=== PATIENT | male | born 1980 | race Caucasian/White ===

== ENCOUNTER 2022-02-26 10:55 | Emergency (ER) | payer OTHER, SELFPAY ==
[2022-02-26] VITALS (8 sets, daily range): BP systolic 100–138; BP diastolic 83–92; PULSE 87–106; RESP 15–20; TEMP 36.1–36.9; O2SAT 98–100
--- NOTE | ~2022-02-26 | CT_ITS ---
EXAMINATION: CT BRAIN W/O DATE: 02/26/2022 12:13 INDICATION: Seizures. TECHNIQUE: Computed tomography (CT) of the head was performed without intravenous contrast. The dose- length product was 908.00 mGy-cm. Automated exposure control and iterative reconstruction technique w ere employed. COMPARISON: No prior studies for comparison. FINDINGS: Normal brain parenchymal volume for age. Normal santoyo-white differentiation. No acute intrac ranial hemorrhage, infarction, mass or mass effect. No ventriculomegaly or midline shift. Midline sagittal images demonstrate a normal corpus callosum, c raniovertebral junction and sella turcica. Basilar cisterns are patent. There is mucosal thickening of the paranasal sinuses. Mastoids are pneumatized. No depressed skull fr actures. IMPRESSION: 1. No acute intracranial abnormality. Reviewed, dictated and finalized at location A. TRICAL ENGINEERING TECHNICIAN
--- NOTE | 2022-02-26 11:03 | ECG_ITS ---
Measurements Intervals [place] Rate: 91 P: 83 NH: 143 QRS: 78 QRSD: 86 T: 25 QT: 358 QTc: 442 Interpretive Statements SINUS RHYTHM BASELINE ARTIFACT NONSPECIFIC ST & T-WAVE ABNORMALITY BORDERLINE ECG NO PREVIOUS ECG AVAILABLE FOR COMPARISON Electronically Signed On 02-26-2022 13:57:47 MANAGER ANIMAL by Brian Florence M.D.
[2022-02-26] MEDS: LORazepam INJ (*CRX) 2 MG/ML VIAL 0.5 MG IV PUSH (11:13)
[2022-02-26] MEDS: SODIUM CHLORIDE 0.9% IV 1,000 ML 999 ML IV CONT (11:13)
[2022-02-26 11:18] LABS: Basophils Absolute Auto 0.02 K/mm3 (0.00-0.10); Basophils Percent Auto 0.4 % (0.0-1.0); Eosinophils Absolute Auto 0.33 K/mm3 (0.02-0.50); Eosinophils Percent Auto 5.9 % (1.0-6.0); Hematocrit 35.3 % (40.0-54.0); Hemoglobin 10.9 g/dL (14.0-18.0); Immature Granulocyte Absolute 0.02 K/mm3 (0.00-0.00); Immature Granulocyte Percent A 0.4 % (0.0-0.0); Lymphocytes Absolute Auto 1.82 K/mm3 (1.10-4.50); Lymphocytes Percent Auto 32.7 % (18.0-42.0); Mean Corpuscular HGB Conc 30.9 g/dL (32.0-36.0); Mean Corpuscular Hemoglobin 26.7 pg (27.0-31.0); Mean Corpuscular Volume 86.3 fL (78.0-102.0); Mean Platelet Volume 9.3 fl (8.7-11.0); Monocytes Absolute Auto 0.47 K/mm3 (0.10-0.90); Monocytes Percent Auto 8.4 % (2.0-11.0); Neutrophils Absolute Auto 2.9 K/mm3 (1.7-7.2); Neutrophils Percent Auto 52.2 % (50.0-70.0); Platelet Count Result 310 K/mm3 (150-420); Red Blood Count 4.09 M/mm3 (4.70-6.10); Red Cell Distribution Width 14.5 % (11.6-14.4); White Blood Count 5.6 K/mm3 (4.8-10.8)
[2022-02-26 11:36] LABS: Alanine Aminotransferase 8 U/L (16-63); Albumin Level 3.1 g/dL (3.4-5.0); Alkaline Phosphatase 84 U/L (46-116); Anion Gap 12 mmol/L (8-16); Aspartate Amino Transferase 13 U/L (15-37); Bilirubin,Total 0.2 mg/dL (0.00-1.00); Blood Urea Nitrogen 12 mg/dL (7-18); Carbon Dioxide 26 mmol/L (21-32); Chloride 102 mmol/L (98-108); Estimated Glomerular Filt Rate > 60; Glucose 128 mg/dL (70-99); Osmolality Calculated 291 mOsm/kg (285-295); Potassium 3.9 mmol/L (3.5-5.1); Sodium 140 mmol/L (136-145); Total Protein 8.7 g/dL (6.4-8.2)
[2022-02-26 12:02] LABS: Add Urine Microscopic? YES; Appearance Urine Clear (Clear); Bilirubin Urine Negative (Negative); Blood Urine 3+ (Negative); Color Urine Yellow (Yellow); Glucose Urine UA Negative (Negative); Ketones Urine Negative (Negative); Leukocyte Esterase Ur Negative LEU/UL (Negative); Nitrate Urine Negative (Negative); Protein Urine Trace (Negative)
[2022-02-26 12:07] LABS: Squamous Epithelial Cell Urine Rare /hpf (Few); WBC Urine None seen /hpf (0-3)
[2022-02-26 12:08] LABS: Bacteria Urine Trace /hpf; Other Sediment Urine Spermatazoa /hpf
[2022-02-26 12:13] LABS: Amphetamine Screen Urine Positive (Negative); Barbiturate Screen Urine Negative (Negative); Benzodiazepines Screen Urine Negative (Negative); Cannabinoid Screen Urine Positive (Negative); Cocaine Screen Urine Negative (Negative); Methadone Screen Urine Negative (Negative); Opiate Screen Urine Negative (Negative); Phencyclidine Screen Urine Negative (Negative)
--- NOTE | 2022-02-26 12:26 | ED.SEIZURE ---
HPI - Seizure General Chief Complaint: Seizure Stated Complaint: ambulance Source: patient and EMS Mode of arrival: ambulatory Limitations: no limitations History of Present Illness HPI Narrative: This is a 41-year-old gentleman with a history of seizures currently not on any medication apparently last seizure was over a year ago had a witnessed seizure at home lasted less than a minute with no tongue biting no bowel or bladder dysfunction currently no injuries no complaints has not had a seizure since he arrived via EMS. There was no chest pain no shortness of breath no altered mental status no fever chills no headaches no blurry vision. MD complaint: seizure Onset (ago): hour(s) Duration of episode: 1 -: minutes(s) Witnessed: Yes - by Bystander Trauma: No Seizure History: Yes Place: home Possible Precipitating Event: none Associated symptoms: denies other symptoms Related Data Allergies Allergy/AdvReac Type Severity Reaction Status Date / Time Penicillins Allergy Mild Rash Verified 02/26/22 11:38 Review of Systems Review of Systems: All systems reviewed & are unremarkable except as noted in HPI and below Exam Const: General: healthy appearing HENMT: Head: normal to inspection Ears: external ears normal Face/Nose/Sinus: Normal external nose present Mouth: Yes Normal oral and palatal mucosa present Teeth and gingiva: dentition normal Throat: posterior oropharynx normal Eyes: Conjunctivae: conjunctivae normal Pupils: Equal, round and reactive pupils present EOM: EOMs intact bilaterally Neck: Neck: normal visual inspection Chest: Chest palpation & inspection: normal inspection of the chest Resp: Effort & Inspection: normal respiratory effort Cardio: Rate: regular rate Rhythm: regular rhythm GI: GI Palp: Yes Soft to palpation : General: Yes bladder normal to palpation Back/Spine/Pelvis: Back: no CVA tenderness Skin: General skin exam: normal color Rashes: no rashes Wounds: no wounds Neuro: General: patient oriented x3, moves all extremities, no meningeal signs, no focal motor deficits and CN's II-XI intact bilaterally Cranial nerves: Yes Nystagmus not present Speech: normal speech Extrem: General: normal to inspection Psych: Appearance: grossly normal Course Course Emergency Course: patient had IV fluids administered along with a dose of IV Ativan, has not had any seizures since eyes been in the emergency department had a CT scan and blood work along with a urine drug screen reviewed. Vital Signs Vital signs: Vital Signs Temperature 36.1 C L 02/26/22 10:55 Pulse Rate 106 H 02/26/22 10:55 Respiratory Rate 18 02/26/22 10:55 Blood Pressure 130/92 H 02/26/22 10:55 Pulse Oximetry 100 02/26/22 10:55 Oxygen Delivery Room Air 02/26/22 10:55 Temperature 36.7 C 02/26/22 10:55 Pulse Rate 88 02/26/22 11:11 Respiratory Rate 20 02/26/22 10:55 Blood Pressure 132/91 H 02/26/22 10:55 Pulse Oximetry 98 02/26/22 10:55 Oxygen Delivery Room Air 02/26/22 10:55 MDM - Seizure Lab Data 02/26/22 11:13 02/26/22 11:13 Labs: Lab Results 02/26/22 02/26/22 02/26/22 Range/Units 11:13 11:13 11:50 WBC 5.6 (4.8-10.8) K/mm3 RBC 4.09 L (4.70-6.10) M/mm3 Hgb 10.9 L (14.0-18.0) g/dL Hct 35.3 L (40.0-54.0) % MCV 86.3 (78.0-102.0) fL MCH 26.7 L (27.0-31.0) pg MCHC 30.9 L (32.0-36.0) g/dL RDW 14.5 H (11.6-14.4) % Plt Count 310 (150-420) K/mm3 MPV 9.3 (8.7-11.0) fl Immature Gran % (Auto) 0.4 H (0.0-0.0) % Neut % (Auto) 52.2 (50.0-70.0) % Lymph % (Auto) 32.7 (18.0-42.0) % [place] % (Auto) 8.4 (2.0-11.0) % Eos % (Auto) 5.9 (1.0-6.0) % Baso % (Auto) 0.4 (0.0-1.0) % Lymph # (Auto) 1.82 (1.10-4.50) K/mm3 [place] # (Auto) 0.47 (0.10-0.90) K/mm3 Eos # (Auto) 0.33 (0.02-0.50) K/mm3 Baso # (Auto) 0.02 (0.00-0.10) K/mm3 Abs Immat Gran (auto) 0.02 H (0.00
--- NOTE | 2022-02-26 12:54 | PC.NURSE ---
pt assisted to mothers vehicle per wheelchair. alert and stable.
== END 2022-02-26 12:53 | disposition home or self-care (01) ==
PROVIDERS: Emergency Provider Emergency Medicine
DX: G40.409 Other generalized epilepsy and epileptic syndromes, not intractable, without status epilepticus (principal)
CPT/HCPCS: 36415; 70450; 80053; 80307; 81001; 85025; 93005; 96361; 96374; 99284; J2060; J7030

== ENCOUNTER 2022-08-25 21:42 | Emergency (ER) | payer OTHER, SELFPAY ==
[2022-08-25] VITALS (12 sets, daily range): BP systolic 104–155; BP diastolic 74–83; PULSE 89–105; RESP 20–26; TEMP 37.7–38; O2SAT 92–100
--- NOTE | ~2022-08-25 | XR_ITS ---
EXAMINATION: XR chest 1V portable DATE: 08/25/2022 21:59 INDICATION: Cough and tired. TECHNIQUE: frontal view of the chest was obtained. COMPARISON: Chest radiograph dated 05/15/2011 FINDINGS: Subtle opacities in the right lower lung zone. Left lung remains clear. No pleural effusion or pneumo thorax. The cardiomediastinal silhouette is normal. Visualized bones and soft tissues are unremarkabl e. IMPRESSION: 1. Subtle opacities in the right lower lung zone suspicious for pneumonia Reviewed, dictated and finalized at location A.
--- NOTE | 2022-08-25 22:09 | ED.GENADULT ---
HPI - General Adult General Chief complaint: Unspecified Stated complaint: Multiple Complaints Time Seen by Provider: 08/25/22 21:46 Source: patient Mode of arrival: ambulatory Limitations: no limitations History of Present Illness HPI narrative: patient here because of shortness of breath and generalized weakness has a cough that is nonproductive temperature of 100.4, with some no chest pain no abdominal pain does have some nausea vomiting with no dysuria no flank pain currently no diarrhea or constipation. Onset (ago): day(s) Related Data Allergies Allergy/AdvReac Type Severity Reaction Status Date / Time Penicillins Allergy Mild Rash Verified 08/25/22 21:45 Review of Systems Review of Systems: All systems reviewed & are unremarkable except as noted in HPI and below PMFSH Past Medical History Medical History Seizures Exam Const: General: cooperative HENMT: Head: normal to inspection Face/Nose/Sinus: Normal external nose present Face and sinus: normal facial exam Mouth: Yes Normal oral and palatal mucosa present Eyes: General: appearance normal, both eyes and all related structures Visual White: normal visual white by confrontation Neck: Neck: normal visual inspection, full ROM and no lymphadenopathy Chest: Chest palpation & inspection: normal inspection of the chest and normal palpation of entire chest wall Resp: Effort & Inspection: normal respiratory effort and able to speak in complete sentences Auscultation: wheezes and bronchial breath sounds Cardio: Jugular venous distension: no JVD Palpation: normal PMI Rate: regular rate Rhythm: regular rhythm Skin: General skin exam: normal color and no rashes or lesions noted Neuro: General: oriented to person, oriented to place, oriented to time and patient oriented x3 Extrem: General: normal to inspection, full ROM and capillary refill normal Psych: Appearance: grossly normal Mental Status: mental status grossly normal Course Course Emergency Course: Patient had chest x-ray that was reviewed shows Subtle opacities consistent with pneumonia, labs performed and reviewed with patient. Patient had a dose of Zofran and IV fluids. Vital Signs Vital signs: Vital Signs Pulse Rate 102 H 08/25/22 21:44 Temperature 38.0 C H 08/25/22 21:46 Pulse Rate 102 H 08/25/22 21:46 Respiratory Rate 22 H 08/25/22 21:46 Blood Pressure 155/74 H 08/25/22 21:46 Pulse Oximetry 92 08/25/22 21:46 Oxygen Delivery Room Air 08/25/22 21:46 Medical Decision Making Vital Signs Vital Signs: Vital Signs Pulse Rate 102 H 08/25/22 21:44 Temperature 38.0 C H 08/25/22 21:46 Pulse Rate 102 H 08/25/22 21:46 Respiratory Rate 22 H 08/25/22 21:46 Blood Pressure 155/74 H 08/25/22 21:46 Pulse Oximetry 92 08/25/22 21:46 Oxygen Delivery Room Air 08/25/22 21:46 Critical Care Time Critical Care Time Critical Care Time: No Discharge Plan Discharge Clinical Impression: Influenza, Other viral pneumonia Patient Disposition: Home, Self-Care Condition: Stable Instructions: Antibiotic Form, Viral Pneumonia (ED), Influenza (ED) Additional Instructions: take medicine as prescribed and follow-up with primary care physician for further evaluation and treatment. Prescriptions: New azithromycin [Zithromax Z-Binh] 250 mg tablet See Rx Instructions .ROUTE .COMPLEX Qty: 6 0RF Rx Instructions: For 250 mg dose pack: take 500 mg today (day 1), then 250 mg for 4 days (days 2-5) oseltamivir [Tamiflu] 75 mg capsule 75 mg PO Q12H 5 Days Qty: 10 0RF ProAir RespiClick 90 mcg/actuation aerosol powdr breath activated 2 inh inhalation QID PRN (Reason: shortness of breath or wheezing) Qty: 1 0RF Follow-up/Referrals: UNKNOWN,DOCTOR [Primary Care Provider] - Time of Disposition: 23:04
[2022-08-25 22:11] LABS: Basophils Absolute Auto 0.01 K/mm3 (0.00-0.10); Basophils Percent Auto 0.1 % (0.0-1.0); Eosinophils Absolute Auto 0.01 K/mm3 (0.02-0.50); Eosinophils Percent Auto 0.1 % (1.0-6.0); Hematocrit 44.6 % (40.0-54.0); Immature Granulocyte Absolute 0.02 K/mm3 (0.00-0.00); Immature Granulocyte Percent A 0.2 % (0.0-0.0); Immature Platelet Fraction Pct 3.8 % (1.0-7.0); Lymphocytes Percent Auto 15.2 % (18.0-42.0); Mean Corpuscular HGB Conc 31.4 g/dL (32.0-36.0); Mean Corpuscular Hemoglobin 26.4 pg (27.0-31.0); Mean Corpuscular Volume 84.2 fL (78.0-102.0); Mean Platelet Volume 10.7 fl (8.7-11.0); Monocytes Absolute Auto 0.71 K/mm3 (0.10-0.90); Monocytes Percent Auto 8.3 % (2.0-11.0); Neutrophils Absolute Auto 6.5 K/mm3 (1.7-7.2); Neutrophils Percent Auto 76.1 % (50.0-70.0); Platelet Count Result 214 K/mm3 (150-420); Red Cell Distribution Width 15.2 % (11.6-14.4); White Blood Count 8.6 K/mm3 (4.8-10.8)
[2022-08-25] MEDS: ACETAMINOPHEN 500 MG TABLET 1000 MG PO (22:11)
[2022-08-25] MEDS: ONDANSETRON INJ 4 MG/2 ML VIAL IV PUSH (22:12)
[2022-08-25] MEDS: SODIUM CHLORIDE 0.9% IV 1,000 ML 999 ML IV CONT (22:12)
[2022-08-25] MEDS: IPRATROPIUM 0.5 MG/ALBUTEROL SULFATE 2.5 MG AMPUL.NEB 3 ML INHALATION (22:24)
[2022-08-25 22:27] LABS: Alanine Aminotransferase 14 U/L (16-63); Albumin Level 3.1 g/dL (3.4-5.0); Alkaline Phosphatase 85 U/L (46-116); Anion Gap 13 mmol/L (8-16); Aspartate Amino Transferase 25 U/L (15-37); Bilirubin,Total 0.2 mg/dL (0.00-1.00); Blood Urea Nitrogen 24 mg/dL (7-18); Calcium 9.1 mg/dL (8.5-10.1); Carbon Dioxide 25 mmol/L (21-32); Chloride 93 mmol/L (98-108); Estimated CRCL calculation 68 ml/min; Estimated Glomerular Filt Rate > 60; Glucose 128 mg/dL (70-99); Osmolality Calculated 278 mOsm/kg (285-295); Potassium 4.6 mmol/L (3.5-5.1); Sodium 131 mmol/L (136-145)
[2022-08-25 22:32] LABS: Lactic Acid Reflex 1.6 mmol/L (0.4-2.0)
[2022-08-25 22:55] LABS: Influenza A QL RT-PCR Negative (Negative); Influenza B QL RT-PCR Positive (Negative); SARS-CoV-2 RNA PCR Negative (Negative)
[2022-08-25 22:56] LABS: RSV RNA, RT-PCR Negative (Negative)
[2022-08-25] MEDS: OSELTAMIVIR PHOSPHATE 75 MG CAPSULE PO (23:10)
[2022-08-25] MEDS: levoFLOXacin 500 MG/D5W 100 ML 500 MG/100 ML BAG 100 MG IVPB (23:10)
[2022-08-26 00:01] VITALS: BP 109/80; PULSE 85; RESP 22; TEMP 37.1; O2SAT 96
== END 2022-08-26 00:30 | disposition home or self-care (01) ==
PROVIDERS: Emergency Provider Emergency Medicine
DX: J11.1 Influenza due to unidentified influenza virus with other respiratory manifestations (principal); J12.89 Other viral pneumonia; Z20.822 Contact with and (suspected) exposure to COVID-19
CPT/HCPCS: 36415; 71045; 80053; 83605; 85025; 85055; 87637; 94640; 96361; 96365; 96375; 99284; A9270; J1956; J2405; J7030